=== PATIENT | male | born 1965 | race African-American/Black ===

== ENCOUNTER 2025-02-25 10:01 | Outpatient (CLI) | payer MEDICAID, SELFPAY ==
--- NOTE | 2025-02-25 | XR_ITS ---
FINAL REPORT CLINICAL HISTORY: .previous stroke, pain since incident COMPARISON: None FINDINGS: Two views of the right shoulder show inferior subluxation without dislocation. There is a notch like deformity of the anterior humeral head which could be sequela from prior dislocation. There is mild degenerative change of the glenohumeral joint. IMPRESSION: Inferior subluxation. Humeral head defect could be sequela from remote dislocation. Reviewed, Interpreted and Dictated by Lety Zheng MD Transcribed by Yue Gao Authenticated and [facility]
== END 2025-02-25 23:59 | disposition home or self-care (01) ==
PROVIDERS: PCP Internal Medicine Adolescent Medicine; Visit Provider Orthopaedic Surgery
DX: S43.031A Inferior subluxation of right humerus, initial encounter (principal); R93.6 Abnormal findings on diagnostic imaging of limbs
CPT/HCPCS: 73030

== ENCOUNTER 2025-04-28 22:00 | Emergency (ER) | payer MEDICAID, SELFPAY ==
--- NOTE | 2025-04-28 21:45 | CT_ITS ---
PROCEDURE INFORMATION: Exam: CTA Head With Contrast, Arteriography Exam date and time: 04/28/2025 10:00 PM Age: 59 years old Clinical indication: Stroke-like symptoms; Other: Possible stroke TECHNIQUE: Imaging protocol: Computed tomographic angiography of the head with contrast. Exam focused on the arteries. Computed tomographic angiography of the head with contrast. Exam focused on the arteries. AI vessel analysis not performed. 3D rendering (Not supervised by radiologist): MIP and/or 3D reconstructed images were created by the technologist. Radiation optimization: All CT scans at this facility use at least one of these dose optimization techniques: automated exposure control; mA and/or kV adjustment per patient size (includes targeted exams where dose is matched to clinical indication); or iterative reconstruction. Contrast material: ISOVUE; Contrast volume: 80 ml; Contrast route: INTRAVENOUS (IV); COMPARISON: CT HEAD/BRAIN WO CON 04/28/2025 9:49 PM FINDINGS: ANTERIOR CIRCULATION: Right internal carotid artery: Right internal carotid artery is patent. No significant stenosis. No aneurysm. Right middle cerebral artery: Right middle cerebral artery is patent. No significant stenosis. No aneurysm. Right anterior cerebral artery: The right INDIRA is patent distal to the coil mass in the A2 segment and beyond is patent. Proximally the right INDIRA is not seen and may be occluded. The right INDIRA has a posterior origin without definite residual aneurysm at the level of the coil mass. Left internal carotid artery: Left internal carotid artery is patent. No significant stenosis. No aneurysm. Left middle cerebral artery: Left middle cerebral artery is patent. No significant stenosis. No aneurysm. Left anterior cerebral artery: The left INDIRA appears to have a stent. The vessel is difficult to visualized due to artifact. The stent appears grossly patent. The left INDIRA distally is patent. POSTERIOR CIRCULATION: Right vertebral artery: Right vertebral artery is patent. No significant stenosis. No aneurysm. Left vertebral artery: Left vertebral artery is patent. No significant stenosis. No aneurysm. Basilar artery: The basilar artery is patent. No significant stenosis. No aneurysm. Right posterior cerebral artery: The right [employer]IST has anatomic variant origin. Left posterior cerebral artery: Left posterior cerebral artery is patent. No significant stenosis. No aneurysm. 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 Veins: Visualized dural venous sinuses grossly patent on this study optimized for arterial assessment. Brain: Multifocal encephalomalacia again seen with possible subacute infarct in the inferior left frontal lobe. No definite vascular malformation seen. Cerebral ventricles: Ventricular size is unchanged. No significant enlargement. Bones/joints: No acute osseous abnormality. Soft tissues: Soft tissues are unremarkable as visualized. IMPRESSION: No acute appearing large vessel occlusion identified. 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 There is a stent in the left INDIRA which is patent. 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 The right INDIRA A2 segment has a posterior origin mimicking the appearance of aneurysm without definite residual aneurysm seen on CTA. This can be further evaluated with catheter angiogram. PROCEDURE INFORMATION: Exam: CTA Neck With Contrast Exam date and time: 04/28/2025 10:00 PM Age: 59 years old Clinical indication: Stroke-like symptoms; Other: Possible stroke TECHNIQUE: Imaging protocol: Computed tomographic angiography of the neck with contrast. Exam focused on the cervical segments of the vasculature. 3D rendering (Not supervised by radiologist): MIP and/or 3D reconstructed images were created by the technologist. Radiation optimization: All CT scans at this facility use at least one of these dose optimization techniques: automated exposure control; mA and/or kV adjustment per patient size (includes targeted exams where dose is matched to clinical indication); or iterative reconstruction. Contrast material: ISOVUE; Contrast volume: 80 ml; Contrast route: INTRAVENOUS (IV); COMPARISON: CT HEAD/BRAIN WO CON 04/28/2025 9:49 PM FINDINGS: Right common carotid artery: The right common carotid artery is widely patent. No stenosis. Right internal carotid artery: The right internal carotid artery is patent. No stenosis by NASCET criteria. No evidence of dissection. Right external carotid artery: Right external carotid artery has no visible occlusion. Left common carotid artery: The left common carotid artery is widely patent. No stenosis. Left internal carotid artery: Atherosclerotic changes proximal left internal carotid artery are seen without significant stenosis. Left external carotid artery: Left external carotid artery has no visible occlusion. Right vertebral artery: Right vertebral artery is patent. No significant stenosis. No evidence of dissection. Left vertebral artery: Left vertebral artery is patent. No significant stenosis. No evidence of dissection. Lymph nodes: Calcified mediastinal nodes suggest old granulomatous disease. Soft tissues: Soft tissues are unremarkable as visualized. Bones/joints: Degenerative bony changes. Lungs: Minimal emphysema in the lung apices. Other findings: Visualized mediastinal vasculature patent. IMPRESSION: No occlusion or significant stenosis. REFERENCES: NASCET CRITERIA. The degree of stenosis in the cervical segment of the internal carotid artery is based on NASCET criteria. Normal is no stenosis. Mild is less than 50% stenosis. Moderate is 50-69% stenosis. Severe is 70% to 99% stenosis. Total occlusion is no detectable patent lumen.
--- NOTE | 2025-04-28 21:45 | CT_ITS ---
PROCEDURE INFORMATION: Exam: CT Head Without Contrast Exam date and time: 04/28/2025 9:49 PM Age: 59 years old Clinical indication: Stroke-like symptoms; Other: Possible stroke; Additional info: Possible stroke. PT has had a previous stroke before TECHNIQUE: Imaging protocol: Computed tomography of the head without contrast. Radiation optimization: All CT scans at this facility use at least one of these dose optimization techniques: automated exposure control; mA and/or kV adjustment per patient size (includes targeted exams where dose is matched to clinical indication); or iterative reconstruction. Other technique: STROKE PROTOCOL was implemented. COMPARISON: No relevant prior studies available. FINDINGS: Brain: There is chronic appearing left frontal and parietal encephalomalacia at the vertex extending to the left frontal operculum in the left parietotemporal region. There is an additional region of hypodensity in the inferior left frontal lobe which may be subacute ischemia. Small additional region of posterior right frontal parasagittal chronic encephalomalacia also present. No acute hemorrhage. No midline shift. Cerebral ventricles: There is minimal ex vacuo prominence of the frontal horn of the left lateral ventricle. No significant ventriculomegaly. Paranasal sinuses: Scattered paranasal sinus mucosal thickening, without air-fluid level present. Mastoid air cells: Mastoid air cells are well-aerated. Orbital cavities: Visualized portions of the orbits are unremarkable. Bones: No acute osseous abnormality. Soft tissues: Soft tissues are unremarkable as visualized. Vasculature: There is aneurysm coil mass at the level of the anterior communicating artery with extensive beam hardening artifact. IMPRESSION: There is a region of hypodensity in the inferior left frontal lobe suspicious for possible subacute ischemia. There are multiple regions of chronic encephalomalacia also present. MRI brain follow-up recommended. ASSESSMENT: ASPECTS ([place] Stroke Program Early CT Score) is 10.
[2025-04-28 21:49] LABS: Hematocrit 36.2 % (42.0-52.0); Hemoglobin 12.1 g/dL (14.1-18.0); Immature Granulocytes % 0.3 %; Mean Corpuscular HGB Conc 33.4 g/dL (31.8-35.4); Mean Corpuscular Hemoglobin 32.3 pg (27.0-31.2); Mean Corpuscular Volume 96.5 fl (80-94); Nucleated Red Blood Cells % 0 %; Platelet Count 195 K/mm3 (142-424); Red Blood Count 3.75 M/mm3 (4.60-6.20); Red Cell Distribution Width-SD 45.6 fL; White Blood Count 6.6 K/mm3 (4.8-10.8)
[2025-04-28 21:57] VITALS: BP 140/74; PULSE 138; RESP 20; TEMP 37.5; O2SAT 91; BMI 21.2
[2025-04-28 21:58] LABS: Alanine Aminotransferase 27 U/L (12-78); Aspartate Amino Transferase 38 U/L (17-59); Blood Urea Nitrogen 14 mg/dl (9-20); Carbon Dioxide 24 mmol/L (22.0-30.0); Creatinine,Serum 0.80 mg/dl (0.66-1.25); Estimated Glomerular Filt Rate 98 ml/min (>60); GFR (African American) 119 ML/MIN (>60)
[2025-04-28 21:59] LABS: Alkaline Phosphatase 101 U/L (38-126); Bilirubin,Total 0.5 mg/dl (0.2-1.3); Calcium 9.9 mg/dl (8.4-10.2); Cholesterol 115 mg/dl (140-200); Glucose 131 mg/dl (74-100); HDL Cholesterol 44 mg/dl (40-60); Total Protein,Serum 7.8 g/dl (6.3-8.2); Triglycerides 78 mg/dl (30-150)
[2025-04-28 22:00] LABS: Activated Partial Thrombo Time 29.4 seconds (22.8-30.6); INR 1.02 (0.9-1.1); Prothrombin Time 11.3 seconds (10.1-12.5)
[2025-04-28] MEDS: SODIUM CHLORIDE 0.9% 10ML SYR (RAD ONLY) 10 ML IV ×2 (22:01→23:06)
[2025-04-28] MEDS: IOPAMIDOL-370 (76%);100ML BOTTLE 80 ML IV ×2 (22:01→23:05)
[2025-04-28] MEDS: 0.9 % SODIUM CHLORIDE 50 ML VIAL IV ×2 (22:01→23:05)
[2025-04-28 22:02] LABS: Anion Gap 16.2 mEq/L (5-15); Chloride 99 mmol/L (98-107); Potassium 4.2 mmoL/L (3.5-5.1); Sodium 135 mmol/L (136-145)
[2025-04-28 22:10] LABS: Troponin I < 0.01 ng/ml (0.00-0.034)
[2025-04-28 22:11] LABS: Albumin Level 4.8 g/dl (3.5-5.0); Albumin/Globulin Ratio 1.6 (1.1-1.8); Globulin 3.0 g/dL (1.3-3.2)
[2025-04-28 22:12] VITALS: BP 140/74; PULSE 132; O2SAT 89
--- NOTE | 2025-04-28 22:12 | ECG_ITS ---
APPROVED REPORT Exam: Resting ECG HR:132 bpm ECG Measurements Heart Rate 132 AXES NJ 147 P 83 QRSd 117 QRS 96 QT 298 T 54 QTc 376 Conclusion SINUS TACHYCARDIA RIGHT BUNDLE BRANCH BLOCK [120+ ms QRS DURATION, UPRIGHT V1, 40+ ms S IN I/aVL/V4/V5/V6] ABNORMAL ECG UNCONFIRMED REPORT Electronically signed by : BENNY VIDAL, 04/29/2025 07:43:39
--- NOTE | 2025-04-28 22:13 | XR_ITS ---
PROCEDURE INFORMATION: Exam: XR Chest Exam date and time: 04/28/2025 10:21 PM Age: 59 years old Clinical indication: Other: Tachycardia TECHNIQUE: Imaging protocol: Radiologic exam of the chest. Views: 1 view. COMPARISON: CT ANGIO NECK 04/28/2025 10:00 PM FINDINGS: Airway: The trachea is midline. Lungs: No focal consolidation. Pleural spaces: No significant pleural effusion. No pneumothorax. Heart/Mediastinum: Visualized cardiomediastinal silhouette unremarkable. Bones/joints: No acute osseous abnormality. Soft tissues: Soft tissues are unremarkable as visualized. IMPRESSION: No acute findings.
[2025-04-28 22:15] LABS: Anisocytosis 1+; Total Cells Counted 100
[2025-04-28 22:16] LABS: Macrocytosis 1+; Ovalocytes 1+; Poikilocytosis 1+; Polychromasia 1+; Target Cells 1+; Tear Drop Cells 1+
--- NOTE | 2025-04-28 22:19 | HMH.EDGENADL ---
Discharge Plan Disposition Patient Disposition: Admitted Condition: Good Clinical Impressions Clinical Impression: Weakness, Fever, Tachycardia Discharge ED Provider: Debbie Montero General Adult HPI General Chief complaint: Neuro Symptoms/Deficit Stated complaint: Pain Time Seen by Provider: 04/28/25 22:14 Mode of Arrival: EMS Source of Information: Patient and EMS Description of Symptoms (Recalled from ER Triage Doc. by RN): PT REPORTS RIGHT SIDED DEFICITS FROM A PRIOR STROKE AND TODAY HE HAS EXPERIENCED CRAMPING AND CONTRACTURES ON THE RIGHT SIDE SINCE 11AM. History of Present Illness HPI narrative: Patient is a 69-year-old with a past CVA with right sided deficits who presented to the emergency department. Patient's last known normal was this morning per report patient started having worsening right-sided weakness and contractures after his physical therapy appointment. Not patient has no other symptoms at this time. Patient arrived via EMS, blood sugar was normal on arrival. No meds in route. On arrival, patient states he has had increased pain and tightness in his right upper extremity and right lower extremity after his physical therapy appointment. Patient states that this has never happened to him before. Patient had a fever at the nursing facility and was given Tylenol prior to arrival. Patient denies any chest pain or shortness of breath. Patient denies any urinary symptoms. Related Data Home Medications ?Medication ?Instructions ?Recorded ?Confirmed acetaminophen 500 mg tablet 500 mg PO 03/25/25 03/25/25 amlodipine 2.5 mg tablet 2.5 mg PO 03/25/25 03/25/25 apixaban 5 mg tablet (Eliquis) 5 mg PO 03/25/25 03/25/25 atorvastatin 40 mg tablet 40 mg PO 03/25/25 03/25/25 baclofen 5 mg tablet 5 mg PO 03/25/25 03/25/25 gabapentin 300 mg capsule 300 mg PO 03/25/25 03/25/25 glycopyrrolate 9 mcg-formoterol inhalation 03/25/25 03/25/25 4.8 mcg HFA aerosol inhaler (Bevespi Aerosphere) melatonin 3 mg tablet 3 mg PO 03/25/25 03/25/25 sertraline 25 mg tablet 25 mg PO 03/25/25 03/25/25 Allergies Allergy/AdvReac Type Severity Reaction Status Date / Time No Known Allergies Allergy Verified 03/25/25 11:18 [facility] Disclaimer: The information contained in this section may have been updated after the patient was seen, as this information can be updated by other users. Social History (Updated 03/25/25 @ 11:21 by JOVITA Enciso) Smoking Status: Unknown if ever smoked alcohol intake: never current occupational status: unemployed and disabled Travel in the last 8 weeks?: None Have you lived/traveled outside US in past 30 days?: No Contact w/someone who lives/traveled outside US past 30 days?: No Exposure to someone with infectious disease in past 14 days?: No Do you have a fever (greater than 100.4 F or 38 C)?: No Have you tested positive for COVID-19?: No Exposed to someone with COVID-19 in past 14 days?: No Do you have a sore throat?: No Do you have a cough?: No Do you have any weakness?: No Do you have any diarrhea?: No Are you experiencing any unusual bleeding?: No Do you have any muscle aches/pain?: No Do you have any abdominal pain?: No Are you experiencing loss of taste or smell?: No Other Medical History Have you received the Pneumonia Vaccine: Yes ROS Obtained: Yes All systems reviewed & no additional complaints except as documented and Yes Systems reviewed as appropriate & no additional complaints except as documented Physical Exam General General appearance: alert and in no apparent distress Head Head exam: atraumatic, normocephalic and normal inspection Eye Eye exam: Present normal appearance, PERRL and EOMI; Absent scleral icterus ENT ENT exam: Present normal exam and normal external ear exam Neck Neck exam: Present normal inspection and full ROM Chest Chest inspection: Present normal inspection and symmetric chest wall rise Respiratory Respiratory exam: Present normal lung sounds bilaterally; Absent respiratory distress or wheezes Cardiovascular Cardiovascular exam: Present regular rate, normal rhythm and normal heart sounds Abdominal Exam Abdominal exam: Present soft and distention; Absent tenderness, guarding or rebound Extremities Exam Extremities exam: Present normal inspection and other (contractures and increased spasticity of the RUE and RLE, normal ROM LUE and LLE) Back Exam Back exam: Present normal inspection and full ROM Neurological Exam Neurological exam: Present alert, oriented X3, CN II-XII intact and other (Decreased strength in the RUE and RLE, NIH 7. 5/5 strength in LUE and LLE.) Psychiatric Psychiatric exam: Present normal affect and normal mood Skin Skin exam: Present warm and dry Medical Decision Making Medical Records Medical records reviewed: Yes I reviewed the patient's medical records. Screening: Per USPSTF and CDC recommendations, given the prevalence of disease in our region, it is our hospital?s policy to screen for HIV and viral Hepatitis for all patients aged 18 and over and those with ongoing risk factors. Cristiano Inquiry Pt receiving controlled substance: No Vital Signs: 04/28/25 21:57 Temperature 99.5 F Temperature Source Oral Pulse Rate [Right] 138 H Respiratory Rate 20 Blood Pressure [Right Arm] 140/74 Blood Pressure Mean [Right Arm] 96 02 Sat by Pulse Oximetry 91 L Oxygen Delivery Method Room Air Lab Data Lab results reviewed: Yes I reviewed the patient's lab results. Lab Results 04/28/25 21:43: WBC 6.6, RBC 3.75 L, Hgb 12.1 L, Hct 36.2 L, MCV 96.5 H, MCH 32.3 H, MCHC 33.4, RDW 12.8, Plt Count 195, MPV 10.0, Neut % (Auto) 82.0 H, Lymph % (Auto) 6.6 L, [place] % (Auto) 10.2 H, Eos % (Auto) 0.6, Baso % (Auto) 0.3, Neut # (Auto) 5.4, Lymph # (Auto) 0.4 L, [place] # (Auto) 0.7, Eos # (Auto) 0.0, Baso # (Auto) 0.0, Total Counted 100, Neutrophils % (Manual) 71, Lymphocytes % (Manual) 15, Monocytes % (Manual) 13 H, Basophils % (Manual) 1.0, Platelet Estimate Normal, Polychromasia 1+, Poikilocytosis 1+, Anisocytosis 1+, Macrocytosis 1+, Target Cells 1+, Tear Drop Cells 1+, Ovalocytes 1+, PT 11.3, INR 1.02, APTT 29.4, Sodium 135 L, Potassium 4.2, Chloride 99, Carbon Dioxide 24, Anion Gap 16.2 H, BUN 14, Creatinine 0.80, Estimated GFR 98, Est GFR ( Amer) 119, Glucose 131 H, Calcium 9.9, Total Bilirubin 0.5, AST 38, ALT 27, Alkaline Phosphatase 101, Total Creatine Kinase 229 H, Troponin I < 0.01, Total Protein 7.8, Albumin 4.8, Globulin 3.0, Albumin/Globulin Ratio 1.6, Triglycerides 78, Cholesterol 115 L, LDL Cholesterol Direct 47.21 L, VLDL Cholesterol 16, HDL Cholesterol 44, Cholesterol/HDL Ratio 2.6, Plasma/Serum Alcohol < 10 04/28/25 22:14: POC Glucose 120 H 04/28/25 23:30: Urine Color Yellow, Urine Appearance Clear, Urine pH 6.0, Ur Specific [place] <= 1.005, Urine Protein Negative, Urine Glucose (UA) Negative, Urine Ketones Negative, Urine Blood Negative, Urine Nitrate Negative, Urine Bilirubin Negative, Urine Urobilinogen 0.2, Ur Leukocyte Esterase Negative, Urine RBC None, Urine WBC None, Ur Squamous Epith Cells Occasional, Urine Bacteria None, Urine Opiates Screen Negative, Urine Methadone Screen Negative, Ur Barbituates Screen Negative, Ur Phencyclidine Scrn Negative, Ur Amphetamines Screen Negative, U Benzodiazepines Scrn Negative, Urine Cocaine Screen Negative, U Marijuana (THC) Screen Negative 04/28/25 21:43 04/28/25 21:43 Orders (Tests/Meds): ED MEDICATIONS Generic Name Dose Route Start Last Admin Trade Name Freq PRN Reason Stop Dose Admin Acetaminophen 1,000 mg 04/29/25 00:41 Acetaminophen 500mg Tab PO 04/29/25 00:42 ONCE ONE Morphine Sulfate 2 mg 04/29/25 00:41 Morphine 4mg/Ml Syringe IV 04/29/25 00:42 ONCE ONE Sodium Chloride 10 ml 04/28/25 21:45 Sodium Chloride 0.9% 10ml Flush Syringe IV 05/28/25 21:44 NEEDED PRN Maintain IV Site Sodium Chloride 10 ml 04/28/25 22:00 04/28/25 22:01 Sodium Chloride 0.9% 10ml Syr (Rad Only) IV 05/28/25 21:59 10 ml NEEDED PRN Administration Maintain IV Site Sodium Chloride 10 ml 04/28/25 23:04 04/28/25 23:06 Sodium Chloride 0.9% 10ml Syr (Rad Only) IV 05/28/25 23:03 10 ml NEEDED PRN Administration Maintain IV Site Discontinued Medications Generic Name Dose Route Start Last Admin Trade Name Freq PRN Reason Stop Dose Admin Diazepam 10 mg 04/28/25 22:09 04/28/25 22:26 Diazepam 10mg/2ml Syringe IV 04/28/25 22:10 10 mg ONCE ONE Administration Sodium Chloride 1,000 mls @ 999 mls/hr 04/28/25 23:42 04/29/25 00:34 Sod Chlor 0.9% 1000ml Bag IV 04/29/25 00:42 999 mls/hr .Q1H1M ONE Administration Cefepime HCl 2 gm/ Sodium 100 mls @ 200 mls/hr 04/28/25 23:54 Chloride IV 04/29/25 00:23 ONCE ONE Iopamidol 80 ml 04/28/25 22:00 04/28/25 22:01 Iopamidol-370 (76%);100ml Bottle IV 04/28/25 22:01 80 ml ONCE ONE Administration Iopamidol 80 ml 04/28/25 23:04 04/28/25 23:05 Iopamidol-370 (76%);100ml Bottle IV 04/28/25 23:05 80 ml ONCE ONE Administration Morphine Sulfate 4 mg 04/28/25 23:32 04/28/25 23:39 Morphine 4mg/Ml Syringe IV 04/28/25 23:33 4 mg ONCE ONE Administration Ondansetron HCl 4 mg 04/28/25 23:32 04/28/25 23:39 Ondansetron 4mg/2ml Vial IV 04/28/25 23:33 4 mg ONCE ONE Administration Sodium Chloride 50 ml 04/28/25 22:00 04/28/25 22:01 0.9 % Sodium Chloride 50 Ml Vial IV 04/28/25 22:01 50 ml ONCE ONE Administration Sodium Chloride 50 ml 04/28/25 23:04 04/28/25 23:05 0.9 % Sodium Chloride 50 Ml Vial IV 04/28/25 23:05 50 ml ONCE ONE Administration ORDERS Category Date Time Status CT angio chest PE protocol Stat Cat Scan 04/28/25 22:[address] angio head Stat Cat Scan 04/28/25 21:[address] angio neck Stat Cat Scan 04/28/25 21:[address] head/brain wo con Stat Cat Scan 04/28/25 21:45 Completed CXR --portable [XR chest portable] Stat Exams 04/28/25 22:13 Completed Activated Partial Thrombo Time Stat Lab 04/28/25 21:43 Completed CK [Creatine Kinase] Stat Lab 04/28/25 21:43 Completed Complete Blood Count Auto Diff Stat Lab 04/28/25 21:43 Completed Comprehensive Metabolic Panel Stat Lab 04/28/25 21:43 Completed Drug Screen,Urine Stat Lab 04/28/25 23:30 Completed Ethyl Alcohol Stat Lab 04/28/25 21:43 Completed Full Resp Panel w/COVID ([facility]) Routine Lab 04/28/25 23:48 Received Lipid Panel Stat Lab 04/28/25 21:43 Completed POC Glucose,Bedside Routine Lab 04/28/25 22:14 Completed Prothrombin Time INR Stat Lab 04/28/25 21:43 Completed Troponin I Q3H Lab 04/29/25 00:45 Ordered Troponin I Q3H Lab 04/29/25 03:45 Ordered Troponin I Stat Lab 04/28/25 21:43 Completed Urinalysis and Microscopic Stat Lab 04/28/25 23:30 Completed Blood Culture Stat Micro 04/28/25 23:54 Ordered Urine Culture Stat Micro 04/28/25 23:30 Received ECG Request Stat Y 04/28/25 21:45 Ordered Medical Decision Narrative: Patient is a 59-year-old gentleman with a past medical history of previous CVA with right-sided deficits who presented to the emergency department as a stroke alert from scene. Patient's last known normal was 11:00 this morning. Patient is already on Eliquis. Per report patient has had increased pain and contractures of the right upper extremity since his physical therapy appointment at 11. NIH of 7 on arrival. POC glucose normal en route. On arrival, patient was normotensive, tachycardic borderline hypoxic with an oxygen saturation of 91% afebrile here but recently febrile at the nursing facility. Differential included but not limited to: CVA, recrudescence of stroke, hypoglycemia, lecture light abnormalities, pulmonary embolism,/CO, pneumonia, amongst others. Labs were reviewed and interpreted by myself and showed: CBC with no leukocytosis, hemoglobin stable. CMP unremarkable. [id number] glucose normal. CK mildly elevated at 229. Initial troponin less than 0.01. UA showed no signs of infection. Urine drug screen is negative. ETOH normal. Lipase normal. Respiratory swab pending. EKG was reviewed and interpreted by myself and showed sinus tachycardia without acute ST-T wave changes or ischemia. CT head and CTA head and neck radiology which showed no large vessel occlusion but showed old stroke with possible new subacute stroke. CT's as above. Patient is already outside the window for TNK and patient is already on anticoagulation. I discussed the case with [facility] there was no workup that they could offer as patient is already on anticoagulation. Patient continued to have significant contractures on the right. Patient was given Valium as well as morphine. Which helped with patient's symptoms. Patient continued to be tachycardic and hypoxic therefore CT PE was obtained given previous PE. CT PE was negative but did show possible left-sided pneumonia. Blood cultures were obtained and patient was given cefepime. I did discuss the case with hospitalist however given patient's previous coil open aneurysm they would be unable to obtain further imaging here and felt that if stroke workup was indicated. I discussed the case with graciously see the patient for admission and was transferrred in stable condition via ALS. Critical Care Critical Care Time Critical Care Time: Yes Attestation: On 04/28/25, the high probability of a clinically significant, sudden or life threatening deterioration of the following system(s) required my full and direct attention, intervention and personal management. The time I documented below is in addition to time spent performing reported procedures but includes the following listed in this critical care notation. Total Time Total Critical Care Time: 35
[2025-04-28 22:21] LABS: POC Glucose,Bedside 120 gm/dL (70-110)
[2025-04-28] MEDS: diazePAM 10MG/2ML SYRINGE 10 MG IV (22:26)
[2025-04-28 22:27] LABS: Creatine Kinase 229 U/L (55-170)
[2025-04-28 22:30] VITALS: BP 129/71; PULSE 131; RESP 24; O2SAT 90
--- NOTE | 2025-04-28 22:37 | CT_ITS ---
PROCEDURE INFORMATION: Exam: CTA Chest With Contrast Exam date and time: 04/28/2025 11:01 PM Age: 59 years old Clinical indication: Other: Tachycardia, hypoxia TECHNIQUE: Imaging protocol: Computed tomographic angiography of the chest with contrast. Exam focused on the arteries. 3D rendering (Not supervised by radiologist): MIP and/or 3D reconstructed images were created by the technologist. Radiation optimization: All CT scans at this facility use at least one of these dose optimization techniques: automated exposure control; mA and/or kV adjustment per patient size (includes targeted exams where dose is matched to clinical indication); or iterative reconstruction. Contrast material: ISOVUE; Contrast volume: 80 ml; Contrast route: INTRAVENOUS (IV); COMPARISON: CR XR CHEST PORTABLE 04/28/2025 10:21 PM FINDINGS: Pulmonary arteries: There is no central PE. No definite segmental PE is seen. Peripheral assessment limited by artifact. Aorta: The aorta is normal in caliber. No dissection seen. Thyroid: Normal visualized thyroid gland. Trachea: Centrally the trachea is patent. Lungs: There are patchy infiltrates or atelectasis present in the lower lobes and lingula. Emphysema present. No suspicious pulmonary mass seen. Pleural spaces: No significant pleural effusion. No pneumothorax. Heart: Heart size is normal. No pericardial effusion. Lymph nodes: There is a lymph node in the right hilum measuring 1.8 cm. Calcified mediastinal nodes. Prevascular space node measures 9 mm. Subcarinal node measures 1.3 cm. Mildly prominent right axillary node measures 1 cm. Liver: There is a cyst or hemangioma posterior right hepatic lobe measuring 6 mm too small to characterize. Spleen: Splenic granulomata. Bones/joints: Degenerative bony changes. Soft tissues: Soft tissues are unremarkable as visualized. Right shoulder posterior intramuscular lipoma. IMPRESSION: 1. There are lower lobe and lingular infiltrates or atelectasis. Correlate for pneumonia and recommend follow-up. No definite pulmonary embolus seen. Study technically limited. 2. Adenopathy in the right hilum and mediastinum, and right axilla is indeterminate potentially reactive. Recommend correlation with history. COMMENTS: The presence of pulmonary emphysema on CT is an independent risk factor for lung cancer. In the absence of a history or active diagnosis of lung cancer, it is recommended that this patient with emphysema be evaluated for enrollment in a low dose CT lung cancer screening program.
[2025-04-28 23:07] VITALS: BP 137/79; PULSE 133; RESP 19; O2SAT 86
[2025-04-28 23:35] LABS: Microscopic, Urine URINE MICROSCOPIC (MICROSCOPIC)
[2025-04-28 23:38] LABS: Bilirubin,Urine Negative (Negative); Color,Urine YELLOW (Yellow); Glucose,Urine (UA) Negative (Negative); Ketones,Urine Negative (Negative); Leukocyte Esterase,Urine Negative (Negative); PH,Urine 6.0 (5.0-8.5); Protein,Urine Negative (Negative); Specific Gravity, Urine <= 1.005 (1.005-1.030); Urobilinogen,Urine 0.2 EU/dl (0.2)
[2025-04-28] MEDS: MORPHINE 4MG/ML SYRINGE 4 MG IV (23:39)
[2025-04-28] MEDS: ONDANSETRON 4MG/2ML VIAL 4 MG IV (23:39)
[2025-04-28 23:49] VITALS: BP 112/62; PULSE 127; RESP 16; O2SAT 91
[2025-04-28 23:49] LABS: Squamous Epithelial Cell,Urine Occasional #/hpf (0-5)
[2025-04-28 23:50] LABS: Barbiturates Screen,Urine Negative ng/ml (<200)
[2025-04-28 23:51] LABS: Benzodiazepines Screen,Urine Negative ng/ml (<200)
[2025-04-28 23:52] LABS: Amphetamine/Metha Screen,Urine Negative ng/ml (<1000)
[2025-04-28 23:53] LABS: Methadone Screen,Urine Negative ng/ml (<300)
[2025-04-28 23:53] LABS: Adenovirus,PCR Not Detected (NotDetected); Chlamydophila Pneumoniae, PCR Not Detected (NotDetected); Coronovirus HKU1,PCR Not Detected (NotDetected); Influenza A, PCR Not Detected (NotDetected); Influenza AH1, 2009 Not Detected (NotDetected); Influenza AH1, PCR Not Detected (NotDetected); Influenza AH3,PCR Not Detected (NotDetected); Influenza B, PCR Not Detected (NotDetected); Mycoplasma Pneumoniae, PCR Not Detected (NotDetected); Parainfluenza 1, PCR Not Detected (NotDetected); Parainfluenza 2, PCR Not Detected (NotDetected); Parainfluenza 3, PCR Not Detected (NotDetected); Parainfluenza 4, PCR Not Detected (NotDetected)
[2025-04-28 23:54] LABS: Opiate Screen,Urine Negative ng/ml (<300)
[2025-04-28 23:55] LABS: Phencyclidine Screen,Urine Negative ng/ml (<25)
[2025-04-29] VITALS: BP 121/73; PULSE 126; RESP 15; O2SAT 96
[2025-04-29] MEDS: 0.9 % SODIUM CHLORIDE 1000ML 1,000 ML 999 ML IV (00:34)
[2025-04-29] MEDS: MORPHINE 4MG/ML SYRINGE 2 MG IV (00:49)
[2025-04-29] MEDS: ACETAMINOPHEN 500MG TAB 1000 MG PO (00:51)
[2025-04-29] MEDS: CEFEPIME HCL 2 GM in 0.9 % SODIUM CHLORIDE 100 ML IV (00:52)
[2025-04-29 01:34] LABS: Coronavirus 19, PCR Detected (NotDetected)
[2025-04-29 03:28] VITALS: BP 121/54; PULSE 124; RESP 17; TEMP 37.2; O2SAT 92
== END 2025-04-29 03:45 | disposition short-term general hospital (02) ==
PROVIDERS: Emergency Provider Student in an Organized Health Care Education/Training Program
DX: U07.1 COVID-19 (principal); R09.02 Hypoxemia; R50.9 Fever, unspecified; R00.0 Tachycardia, unspecified; R53.1 Weakness; Z86.73 Personal history of transient ischemic attack (TIA), and cerebral infarction without residual deficits; Z79.01 Long term (current) use of anticoagulants
CPT/HCPCS: 0223U; 70450; 70496; 70498; 71045; 71275; 80053; 80061; 80307; 80320; 81001; 82550; 82962; 84484; 85007; 85025; 85027; 85610; 85730; 87040; 87086; 93005; 96365; 96374; 96375; 96376; 99285; 99291; J0692; J2270; J2405; J3360; J7030; Q9967